=== PATIENT | male | born 1975 | race Caucasian/White ===

== ENCOUNTER 2016-10-23 09:24 | Emergency (ER) | payer MEDICAID ==
[~2016-10-23] VITALS: Ht 177.8 cm; Wt 114.0 kg
[~2016-10-23 09:24] MED LIST: CLEOCIN300 MG OR; LORTAB 10 OR; PERCOCET 5/325M1 TAB OR
[2016-10-23] MEDS ORDERED: NAPROSYN500 MG PO (11:14)
[2016-10-23] MEDS ORDERED: FLEXERIL PO (11:14)
[2016-10-23 11:27] VITALS: BP 110/79
== END 2016-10-23 11:27 | disposition home or self-care (01) | DRG 552 ==
LOC: ED 09:24
DX: M54.2 Cervicalgia (principal); X50.0XXA Overexertion from strenuous movement or load, initial encounter; X58.XXXA Exposure to other specified factors, initial encounter; Y93.89 Activity, other specified; Y92.411 Interstate highway as the place of occurrence of the external cause